=== PATIENT | female | born 1950 | race Caucasian/White ===

== ENCOUNTER 2024-10-07 17:23 | Observation (INO) | payer MEDICARE, OTHER, SELFPAY ==
[2024-10-07] VITALS (7 sets, daily range): BP systolic 135–179; BP diastolic 60–84; PULSE 62–97; RESP 16–20; TEMP 35.9–36.9; O2SAT 95–99; BMI 23.3
--- NOTE | 2024-10-07 20:11 | XR_ITS ---
Patient: MARYANN DIMAS Facility:?[facility] Patient ID:?[id number] Site Patient ID:?[id number]. Site :?[id number] Study:?XRay-Chest 2v-10/07/2024 10:21:14 PM Ordering Physician:Prasad Childs Final Report: INDICATION: Chest pain. TECHNIQUE: Chest 2 views. COMPARISON: None. FINDINGS: Cardiovascular and mediastinum: Cardiomediastinal silhouette is within normal limits. Lungs and pleural spaces: No consolidation. No pleural effusions or pneumothorax. Bones and soft tissues: Degenerative changes of the spine. IMPRESSION: No acute cardiopulmonary abnormality. Dictated by Musa Vogel MD @ 10/07/2024 10:25:09 PM Signed by:?Musa Vogel MD @10/07/2024 10:25:09 PM (Electronic Signature)
[2024-10-07 20:14] LABS: Basophils Absolute Auto 0.09 K/uL (0.00-0.30); Basophils Percent Auto 0.9 % (0.0-3.0); Eosinophils Absolute Auto 0.42 K/uL (0.00-0.50); Eosinophils Percent Auto 4.2 % (0.0-7.0); Hematocrit 41.9 % (33.0-51.0); Hemoglobin* 13.7 gm/dL (12.0-16.0); Immature Granulocytes Abs Auto 0.01 K/uL (0.00-0.30); Immature Granulocytes Pct Auto 0.1 %; Lymphocytes Absolute Auto 2.91 K/uL (0.90-2.90); Lymphocytes Percent Auto 28.8 % (20-44); Mean Corpuscular HGB Conc 33 gm/dL (32-36); Mean Corpuscular Hemoglobin 29 pg (26-34); Mean Corpuscular Volume 89 fL (80-100); Monocytes Percent Auto 7.9 % (0.0-11.0); Neutrophils Absolute Auto 5.86 K/uL (1.7-7.0); Neutrophils Percent Auto 58.1 % (42.0-72.0); Platelet Count* 323 K/uL (140-440); RDW Coefficient of Variation % 12.6 % (11.5-15.5); Red Blood Count 4.71 m/uL (4.00-5.20); White Blood Count* 10.09 K/uL (4.50-11.00)
--- NOTE | 2024-10-07 20:17 | ED.CHESTPAIN ---
HPI - Chest Pain General Date Seen: 10/07/24 Chief Complaint: Chest Pain Stated Complaint: Chest pain Time Seen by Provider: 10/07/24 19:59 Source: patient Mode of arrival: ambulatory Limitations: no limitations History of Present Illness HPI narrative: Patient is a 74-year-old female presenting to the emergency department for chest pain. She has been having intermittent chest pain for the past few weeks. She feels like it might become more frequent but can not say for certain. States Tums seem to make her symptoms better. Has had 3 separate episodes today. Called her triage line and was told to come to the emergency department. When she had the symptoms today she felt like she bilateral arm weakness but again those symptoms have all since resolved. She does states since she was in triage she started having some mild chest pain again. Does state it feels like a cramping sensation. Symptoms usually happen in the evening after she eats. No history of heart or lung disease. She does have a father who had triple bypass surgery. Her only medication is for arthritis. No history of blood clots. Has not had any hemoptysis. No history of smoking. No other concerns noted at this time. Related Data Home Medications ?Medication ?Instructions ?Recorded ?Confirmed No Known Home Medications 10/07/24 10/07/24 Allergies Allergy/AdvReac Type Severity Reaction Status Date / Time Penicillins Allergy Unknown Hives Verified 10/07/24 17:34 Review of Systems Status of ROS Reports: 10 or more systems reviewed and unremarkable except as noted in History and below PFSH PFSH Social History Smoking Status: Never smoker Do you use any of these nicotine containing products: None How often do you have a drink containing alcohol: 2-4 times a month How many standard drinks containing alcohol do you have on a typical day: 1 or 2 How often do you have six or more drinks on one occasion: Never AUDIT-C Alcohol total score: 2 Non-prescribed substance use: denies use service: No Exam Narrative Exam Narrative: Const: Well-nourished, Well-developed, in mild distress Eyes: PERRL, no conjunctival injection, and symmetrical lids HENT: Atraumatic external nose and ears. Moist mucous membranes. Neck: Symmetric, trachea midline, No thyromegaly. CVS: RRR, No murmurs or gallops. Peripheral pulses 2+ and equal in all extremities RESP: Unlabored respiratory effort. Clear to auscultation bilaterally. GI: Nontender/Nondistended, No rebound or guarding. MSK:Extremities w/o deformity, Normal Active ROM Skin: Warm, Dry. No rashes or lesions. Neuro: Normal Muscle tone, No focal neurological deficits. Psych: Awake, Alert, & Oriented x3. Appropriate mood and affect. Const Vital Signs, click to edit/add: Vital Signs - 24 hr 10/07/24 17:29 10/07/24 20:32 10/07/24 20:44 Temperature 96.7 F L 98.5 F Pulse Rate [Pulse Oximeter] 72 75 62 Respiratory Rate 16 18 18 Blood Pressure [Right Upper Arm] 155/84 H 179/79 H 165/81 H Pulse Oximetry 98 99 98 Oxygen Delivery Method Room Air Room Air Room Air 10/07/24 20:55 10/07/24 21:40 10/07/24 22:00 Temperature Pulse Rate [Pulse Oximeter] 97 66 64 Respiratory Rate 20 16 16 Blood Pressure [Right Upper Arm] 147/74 H 154/73 H 137/64 Pulse Oximetry 98 97 95 Oxygen Delivery Method Room Air Room Air Room Air Course Vital Signs Vital signs: Initial Vital Signs Temperature 96.7 F L 10/07/24 17:29 Temperature Source Temporal Artery Scan 10/07/24 17:29 Pulse Rate 72 10/07/24 17:29 Pulse Rhythm Regular 10/07/24 17:29 Respiratory Rate 16 10/07/24 17:29 Blood Pressure 155/84 H 10/07/24 17:29 Blood Pressure Mean 107 H 10/07/24 17:29 Blood Pressure Position Sitting 10/07/24 17:29 Pulse Oximetry 98 10/07/24 17:29 Oxygen Delivery Method Room Air 10/07/24 17:29 Vital Signs Temperature 96.7 F L 10/07/24 17:29 Pulse Rate 72 10/07/24 17:29 Respiratory Rate 16 10/07/24 17:29 Blood Pressure 155/84 H 10/07/24 17:29 Pulse Oximetry 98 10/07/24 17:29 Oxygen Delivery Method Room Air 10/07/24 17:29 Temperature 98.5 F 10/07/24 20:32 Pulse Rate 64 10/07/24 22:00 Respiratory Rate 16 10/07/24 22:00 Blood Pressure 137/64 10/07/24 22:00 Pulse Oximetry 95 10/07/24 22:00 Oxygen Delivery Method Room Air 10/07/24 22:00 Medications Administered Medications: Discontinued Medications Generic Name Dose Route Start Last Admin Trade Name Kyle PRN Reason Stop Dose Admin Aspirin 324 mg 10/07/24 20:55 10/07/24 21:02 Aspirin 81 Mg Tab.Chew PO 10/07/24 20:56 324 mg ONCE ONE Administration Lidocaine/Aluminum/Magnesium/Simeth 30 ml 10/07/24 20:11 10/07/24 20:32 Gi Cocktail (Visc Lido/Antacid) 30 Ml PO 10/07/24 20:12 30 ml ONCE ONE Administration MDM - Chest Pain MDM Narrative Medical decision making narrative: Patient is a 74-year-old female presenting for chest pain. The differential diagnosis of chest pain is broad and includes common etiologies such as musculoskeletal strain, GERD, pneumonia, etc. More serious etiologies considered include PE, coronary artery disease, pneumothorax, aortic dissection, aortic aneurysm. I will do a D-dimer look for signs of PE. EKG and troponin to look for signs of coronary artery disease. Chest x-ray order to look for signs of pneumothorax or pneumonia. She is otherwise appearing stable aortic dissection and aortic aneurysm seem unlikely. Will try some GI cocktail to see if her symptoms are from GERD. Based on the Tums helping I a.m. thinking this could be cared related. Will also do CBC, BMP, viral swabs, magnesium. Chest x-ray reviewed by myself and the radiologist shows no acute concerning abnormalities. Patient EKG shows no acute concerning abnormalities. Troponin is elevated at 0.09. We will repeat this. Her symptoms seem to have improved. Unsure if it is due to the GI cocktail are not CBC and BMP showed no concerning findings. Magnesium within normal limits. Viral swabs are negative. D-dimer is elevated 1.61 so will do a CTA. CTA shows no acute concerning abnormalities. She does have multiple scattered bilateral pulmonary nodules. These can be follow-up outpatient. Repeat troponin is 0.09. There has been no change in she is an otherwise healthy lady but it is odd that her troponin would be elevated. I checked epic in our previous records and have not seen any signs of previous troponins. Unsure what her baseline is. Considering this chest pain has been ongoing I do think we should admit her for further evaluation. She is agreeable to this plan. I spoke to the hospitalist who accepts her for admission Lab Data Labs: Lab Results 10/07/24 10/07/24 10/07/24 Range/Units 19:57 20:04 20:13 WBC 10.09 (4.50-11.00) K/uL RBC 4.71 (4.00-5.20) m/uL Hgb 13.7 (12.0-16.0) gm/dL Hct 41.9 (33.0-51.0) % MCV 89 (80-100) fL MCH 29 (26-34) pg MCHC 33 (32-36) gm/dL RDW Coeff of Martell 12.6 (11.5-15.5) % Plt Count 323 (140-440) K/uL Neut % (Auto) 58.1 (42.0-72.0) % Lymph % (Auto) 28.8 (20-44) % [place] % (Auto) 7.9 (0.0-11.0) % Eos % (Auto) 4.2 (0.0-7.0) % Baso % (Auto) 0.9 (0.0-3.0) % Neut # (Auto) 5.86 (1.7-7.0) K/uL Lymph # (Auto) 2.91 H (0.90-2.90) K/uL [place] # (Auto) 0.80 (0.00-0.90) K/UL Eos # (Auto) 0.42 (0.00-0.50) K/uL Baso # (Auto) 0.09 (0.00-0.30) K/uL Abs Immat Gran (auto) 0.01 (0.00-0.30) K/uL Imm/Tot Granulo (auto) 0.1 % D-Dimer Quant (PE/DVT) 1.61 H (0.00-0.50) ug/ml Sodium 138 (135-149) mmol/L Potassium 4.2 (3.6-5.1) mmol/L Chloride 103 (96-114) mmol/L Carbon Dioxide 28 (20-32) mmol/L Anion Gap 7 (7-15) mEq/L BUN 18 (7-30) mg/dL Creatinine 0.8 (0.5-1.5) mg/dL Estimated Creat Clear 42.62 Estimated GFR 77 ml/min Glucose 96 (60-115) mg/dL Calcium 10.4 (8.4-10.6) mg/dL Magnesium 2.3 Cancelled (1.5-2.6) mg/dL Troponin I 0.09 H* (0.01-0.04) ng/mL SARS-CoV-2 (PCR) (Negative) Influenza Type A (PCR) (Negative) Influenza Type B (PCR) (Negative) RSV (PCR) (Negative) Lab Acknowledgement POC Troponin I 0.07 H (0.01-0.04) ng/ml 10/07/24 10/07/24 10/07/24 Range/Units 20:17 20:37 22:02 WBC (4.50-11.00) K/uL RBC (4.00-5.20) m/uL Hgb (12.0-16.0) gm/dL Hct (33.0-51.0) % MCV (80-100) fL MCH (26-34) pg MCHC (32-36) gm/dL RDW Coeff of [place]ell (11.5-15.5) % Plt Count (140-440) K/uL Neut % (Auto) (42.0-72.0) % Lymph % (Auto) (20-44) % [place] % (Auto) (0.0-11.0) % Eos % (Auto) (0.0-7.0) % Baso % (Auto) (0.0-3.0) % Neut # (Auto) (1.7-7.0) K/uL Lymph # (Auto) (0.90-2.90) K/uL [place] # (Auto) (0.00-0.90) K/UL Eos # (Auto) (0.00-0.50) K/uL Baso # (Auto) (0.00-0.30) K/uL Abs Immat Gran (auto) (0.00-0.30) K/uL Imm/Tot Granulo (auto) % D-Dimer Quant (PE/DVT) (0.00-0.50) ug/ml Sodium (135-149) mmol/L Potassium (3.6-5.1) mmol/L Chloride (96-114) mmol/L Carbon Dioxide (20-32) mmol/L Anion Gap (7-15) mEq/L BUN (7-30) mg/dL Creatinine (0.5-1.5) mg/dL Estimated Creat Clear Estimated GFR ml/min Glucose (60-115) mg/dL Calcium (8.4-10.6) mg/dL Magnesium (1.5-2.6) mg/dL Troponin I 0.09 H* (0.01-0.04) ng/mL SARS-CoV-2 (PCR) Negative SARS-CoV-2 (Negative) Influenza Type A (PCR) Negative PCR FLU A (Negative) Influenza Type B (PCR) Negative PCR FLU B (Negative) RSV (PCR) Negative PCR RSV (Negative) Lab Acknowledgement Test Added POC Troponin I (0.01-0.04) ng/ml Imaging Data CTA chest: Radiologist's impression: IMPRESSION: 1. No evidence of pulmonary embolism or acute pulmonary process. 2. Scattered bilateral pulmonary nodules measuring up to 6 mm. Please see below for follow-up guidelines. Chest x-ray: Attestation: I have reviewed the pertinent imaging results. Radiologist's impression: No acute cardiopulmonary abnormality. Dictated by Musa Vogel MD @ 10/07/2024 10:25:09 PM Discharge Plan Discharge Clinical Impression: Elevated troponin Chest pain Qualifiers: Chest pain type: unspecified Qualified Code(s): R07.9 - Chest pain, unspecified Patient Disposition: Admitted As Observation Condition: Stable
[2024-10-07 20:19] LABS: Slide Review Reflex No
[2024-10-07 20:26] LABS: Chloride* 103 mmol/L (96-114); Sodium* 138 mmol/L (135-149)
[2024-10-07 20:26] LABS: Troponin, Point-of-Care* 0.07 ng/ml (0.01-0.04)
[2024-10-07 20:27] LABS: Potassium* 4.2 mmol/L (3.6-5.1)
[2024-10-07 20:29] LABS: Anion Gap 7 mEq/L (7-15); Blood Urea Nitrogen* 18 mg/dL (7-30); Carbon Dioxide* 28 mmol/L (20-32); Creatinine* 0.8 mg/dL (0.5-1.5); Est. Creatinine Clearance* 42.62; Estimated Glomerular Filt Rate 77 ml/min
[2024-10-07 20:30] LABS: Calcium* 10.4 mg/dL (8.4-10.6); D Dimer Quantitative* 1.61 ug/ml (0.00-0.50); Glucose* 96 mg/dL (60-115); Magnesium* 2.3 mg/dL (1.5-2.6)
[2024-10-07] MEDS: GI COCKTAIL (VISC LIDO/ANTACID) 30 ML PO (20:32)
[2024-10-07 20:43] LABS: Troponin I* 0.09 ng/mL (0.01-0.04)
--- NOTE | 2024-10-07 20:48 | CT_ITS ---
Patient: MARYANN DIMAS Facility:?[facility] Patient ID:?[id number] Site Patient ID:?[id number] Site :?[id number] Study:?CT-Chest PE PROTOCOL-10/07/2024 9:43:10 PM Ordering Physician:SHRUTHI Final Report: INDICATION: Chest pain. TECHNIQUE: CTA chest PE was acquired with 95 cc Isovue 370 IV contrast. Multiplanar and MIP reconstructions were performed. COMPARISON: None. FINDINGS: Heart and vasculature: Contrast opacification of the pulmonary arterial tree is adequate. No sign of pulmonary embolism. Heart size is normal. Thoracic aorta and pulmonary artery are normal in caliber. Lungs and pleura: Mild dependent and bibasilar atelectasis. Otherwise no acute infiltrates. Scattered bilateral pulmonary nodules, with territory service representative examples including 5 mm right lower lobe nodule (series 5, image 114), 6 mm right lower lobe nodule (series 5, image 121), 5 mm left perifissural nodule (series 5, image 88), and 5 mm posterior left lower lobe nodule (series 5, image 115). No pleural effusions, pleural thickening, or pneumothorax. Lymph nodes/mediastinum: No mediastinal, hilar, or axillary adenopathy. Bilateral subcentimeter thyroid nodules. Chest wall: No masses. Upper abdomen: No acute findings. Bones: Degenerative changes. IMPRESSION: 1. No evidence of pulmonary embolism or acute pulmonary process. 2. Scattered bilateral pulmonary nodules measuring up to 6 mm. Please see below for follow-up guidelines. SOCIETY GUIDELINES - SOLID NODULES: SINGLE LOW RISK - nodule less than 6 mm: No routine follow-up. - nodule 6-8 mm: CT at 6-12 months, then consider CT at 18-24 months. - nodule greater than 8 mm: Consider CT at 3 months, PET/CT or tissue sampling. SINGLE HIGH RISK - nodule less than 6 mm: Optional CT at 12 months. - nodule 6-8 mm: CT at 6-12 months, then CT at 18-24 months. - nodule greater than 8 mm: Consider CT at 3 months, PET/CT or tissue sampling. MULTIPLE LOW RISK - nodule less than 6 mm: No routine follow-up. - nodule 6-8 mm: CT at 3-6 months, then consider CT at 18-24 months. - nodule greater than 8 mm: CT at 3-6 months, then consider CT at 18-24 months. MULTIPLE HIGH RISK - nodule less than 6 mm: Optional CT at 12 months. - nodule 6-8 mm: CT at 3-6 months, then at 18-24 months. - nodule greater than 8 mm: CT at 3-6 months, then at 18-24 months. Please note that all CT scans at this facility use dose modulation, iterative reconstruction, and/or weight-based dosing when appropriate to reduce radiation dose to as low as reasonably achievable. Dictated by Musa Vogel MD @ 10/07/2024 10:06:04 PM Signed by:?Musa Vogel MD @10/07/2024 10:06:04 PM (Electronic Signature)
[2024-10-07] MEDS: ASPIRIN 81 MG TAB.CHEW 324 MG PO (21:02)
--- OUTSIDE RECORDS SUMMARY | 2024-10-07 21:05 | XMS_ITS | Clinical Summary ---
Author Organization [facility] Address [address] [place] [id number] Care Team Providers Care Propellant Charge Zone Assembler Name Role Phone Luis Greene MD Primary Care Provider [phone] Allergies Active Allergy Reactions Criticality Noted Date Comments Penicillins Hives,Rash High 06/25/2011 Medications triamcinolone (ARISTOCORT; KENALOG) 0.1 % creamIndication s:Dermatitis Apply topically to affected area(s) two times daily. 80 g 2 4 Active cholecalciferol (Vitamin D) 1,000 unit capsule Take 1 Capsule (1,000 units) by mouth once daily. 4 Active Active Problems Problem Noted Date Diagnosed Date Primary osteoarthritis of both hips 08/13/2023 Hyperlipidemia 12/02/2021 Encounters Date Type Department Care Team Description 10/07/[address] [facility] [address] [address] Luis Greene MD Chest Pain 09/15/2024 8:00 AM CDT Office Visit [facility] [address] [place] [place] [address] Luis Greene MD Medicare ANNUAL (subsequent) Visit 09/14/2024 Travel 09/11/2024 9:10 AM CDT Ancillary Procedure [facility] [address] [place] [id number] 09/11/2024 Travel 09/10/2024 10:10 AM CDT Office Visit [facility] [address] [place] [address] Clara Slade MD Derm Problem 09/09/2024 Travel 09/07/2024 Travel 08/27/2024 Orders Only [facility] Scanner 1 scan: (1-Ord) INCOMING RECORDS-[facility], 08/27/2024 from Last 3 Months Immunizations Immunization Administration Dates Next Due DT (Age < 7 years) 07/20/1991 Influenza, High-dose Inactivated 12/26/2023,12/14,01/08/2018 Influenza, High-dose Quadriv alent Inactivated 01/11/2023,01/01/2022,01/30/2021,12/13 Pneumococcal Poly,23-Valent (Pneumovax) 06/04/2016 Pneumococcal conj 13-Valent (Prevnar 13) 05/04/2015 RSV, Bivalent Vaccine Recons tituted (Abrysvo 120MCG/0.5mL) 01/11/2023 TD, UNSPECIFIED 10/23/2001 Td (Age >=7 Years) 12/02/2021 Tdap, Unspecified 11/23/2005 Zoster (Shingrix-RZV, recombinant) 01/08/2018, Zoster (Zostavax-ZVL, live) 05/10/2010 Family History Medical History Relation Name Comments Brain Aneurysm Brother 1 Stroke Father Relation Name Status Comments Brother 1 Brother 2 Alive Brother 3 Alive Father Mother Social History Tobacco Use Types Packs/Day Years Used Date Smoking Tobacco: Never Passive Smoke Exposure: Never Smokeless Tobacco: Never Tobacco Cessation:Counseling Given: Not Answered Alcohol Use Standard Drinks/Week Comments Yes 0 (1 standard drink = 0.6 oz pur e alcohol) PHQ-2 Answer Date Recorded PHQ-2 TOTAL SCORE 0 09/15/2024 Social Connections Answer Date Recorded Do you often feel lonely or isolated from those around you? 0 09/14/2024 Financial Resource Strain Answer Date R ecorded Difficulty of Paying Living Expenses 3 09/14/2024 Difficulty of Paying Living Expenses Not on file 09/14/2024 Food Insecurity Answer Date Recorded Do you worry your food will run out before you are able to buy more? 1 09/14/2024 Transportation Needs Answer Date Record ed Does lack of transportation keep you from medica l appointments? 1 09/14/2024 Does lack of transportation keep you from work, meetings or getting things that you need? 1 09/14/2024 Housing Stability Answer Date Recorded What is your housing situation today? 1 09/14/2024 Utilities Answer Date Recorded Do you have trouble paying f or utilities (for example, heat, electricity, water, phone)? 1 09/14/2024 Comments No Sex and Gender Information Value Date Recorded Sex Assigned at Not on file Legal Sex Female 11:27 AM CDT Gender Identity Not on file Sexual Orientation Not on file Travel History Travel Start Travel End [place] 09/05/2024 09/06/2024 Obstetrics History Para Term AB IAB SAB Ectopic Multiple Livin g Live Births 3 3 Date Outcome GA Total Labor Labor/2nd/3rd Weight Sex Type Anes PTL Yudy A1 A5 Name Clin Para Para Para Last Filed Vital Signs Vital Sign Reading Time Taken Comments Blood Pressure 100/70 09/15/2024 8:09 AM CDT Pulse 72 09/15/2024 8:09 AM CDT Temperature 36.1 C (96.9 F) 12/02/2021 11:43 AM CDT Respiratory Rate - - Oxygen Saturation 97% 12/02/2021 11:43 AM CDT Inhaled Oxygen Concentration - - Weight 62.6 kg (138 lb) 09/15/2024 8:09 AM CDT Height 164 cm (5' 4.57) 09/15/2024 8:09 AM CDT Body Mass Index 23.27 09/15/2024 8:09 AM CDT Plan of Treatment Health Maintenance Due Date Last Done Comments Colonoscopy through age 75 05/19/202505/19 (Verified in Care Everywhere or Patient Record) Mammogram for age 45-75 09/11/2025 09/12/19 25, 08/14/2023, 05/25/2022, Additional history exists BMI (ht and wt on same day) for age 18+ 09/15/2025 09/15/2024, 08/13/2023 Depression screening for age 12+ 09/15/2025 09/15/2024, 09/10/2024, 08/13/2023, Additional history exists Medicare Wellness for age 65+ 09/16/2025 09/15/2024, 08/13/2023 Lipids for age 45-75 09/15/2029 09/15/2024 Tetanus booster 12/03/2031 12/02/2021, 11/13, 10/23/2001 Tdap Completed 11/23/2005 Pneumococcal series for age 50+ Completed 06/04/2016, 05/04/2015 Zoster (shingles) series for age 50+ Completed 01/08/2018, 08/09/2017, 05/10/2010 DEXA/DXA scan for age 65+ Addressed 2021 (Verified in Care Everywhere or Patient Record) Overridden with the intention of not completing the topic RSV vaccine for adults or Completed 01/11/2023 Influenza Vaccine Completed 12/26/2023, , 01/08/2018 COVID-19 vaccine series Completed 07/23/19, 12/26/2023, 01/11/2023, Additional history exists Hepatitis C screening for age 18-79 Completed 09/15/2024 Hepatitis B series for 19+ Aged Out N o longer eligible based on patient's age to complete this topic Procedures Procedure Name Priority Date/Time Associated Diagnosis Comments LIPID PANEL W REFLEX MEASURED LDL Routine 09/15/2024 8:55 AM CDT Screening for cardiovascular condition BASIC METABOLIC PANEL Routine 09/15/2024 8:55 AM CDT Screening for diabetes mellitus (DM) ANTI HCV Routine 09/15/2024 8:55 AM CDT Need for hepatitis C screening test CBC WITH AUTO DIFFERENTIAL Routine 09/15/2024 8:55 AM CDT Screening for other disorders of blood and blood-forming organs XR MAMMO LONNIE BILAT SCREEN Routine 09/11/2024 9:16 AM CDT Visit for screening mammogram SCAN CORRESP-IMAGING 08/27/2024 12:00 AM CDT from Last 3 Months Results * LIPID PANEL W REFLEX MEASURED LDL [[id number]] (09/15/2024 8:55 AM CDT) CHOLESTEROL, TOTAL 182 <200 mg/dL [facility] HDL CHOLESTEROL 72 > OR = 50 mg/dL [facility] TRIGLYCERIDES 41 <150 mg/dL [facility] LDL-CHOLESTEROL 98 mg/dL (calc) [facility] Comment: Reference range: <100 Desirable range <100 mg/dL for primary prevention; <70 mg/dL for patients with CHD or diabetic patients with > or = 2 CHD risk factors. LDL-C is now calculated using the Jakub calculation, which is a validated novel method providing better accuracy than the Friedewald equation in the estimation of LDL-C. Phi BARON et al. EBER. 2013;310(19): 1885-0683 (http://education.DotBlu/faq/UPV181) CHOL/HDLC RATIO 2.5 <5.0 (calc) [facility] NON HDL CHOLESTEROL 110 <130 mg/dL (calc) [facility] Comment: For patients with diabetes plus 1 major ASCVD risk factor, treating to a non-HDL-C goal of <100 mg/dL (LDL-C of <70 mg/dL) is considered a therapeutic option. Blood BLOOD SPECIMEN / Unknown 09/15/2024 8:55 AM CDT 09/15/2024 8:55 AM CDT us Luis Greene MD CHEMISTRY Final Result [facility] [address] [place] [address], [place] [phone] [facility] [address] [place] [address] * ANTI HCV (09/15/2024 8:55 AM CDT) HEPATITIS C ANTIBODY NON-REACTI VE NON-REACT ABDIAS [facility] Comment: HCV antibody was non-reactive. There is no laboratory evidence of HCV infection. In most cases, no further action is required. However, if recent HCV exposure is suspected, a test for HCV RNA (test code 35767) is suggested. For additional information please refer to http://education.[employer] Innovation Factory/faq/ZED83y6 (This link is being provided for informational/ educational purposes only.) Blood BLOOD SPECIMEN / Unknown 09/15/2024 8:55 AM CDT 09/15/2024 8:55 AM CDT us Luis Greene MD SEND OUTS Final Result [facility] [address] [place] [address], [facility] [address] [place] [address] * (ABNORMAL) CBC AND DIFFERENTIAL (09/15/2024 8:55 AM CDT) Pathologist [facility] WHITE BLOOD CELL COUNT 8.7 3.8 - 10.8 Thousand/u L [facility] RED BLOOD CELL COUNT 4.61 3.80 - 5.10 Million/uL [facility] HEMOGLOBIN 13.2 11.7 - 15.5 g/dL [facility] HEMATOCRIT 42.7 35.0 - 45.0 % [facility] MCV 92.6 80.0 - 100.0 fL [facility] MCH 28.6 27.0 - 33.0 pg [facility] MCHC 30.9(L) 32.0 - 36.0 g/dL [facility] Comment: For adults, a slight decrease in the calculated MCHC value (in the range of 30 to 32 g/dL) is most likely not clinically significant; however, it should be interpreted with caution in correlation with other red cell parameters and the patient's clinical condition. RDW 13.0 11.0 - 15.0 % [facility] PLATELET COUNT 335 140 - 400 Thousand/u L [facility] MPV 10.1 7.5 - 12.5 fL [facility] ABSOLUTE NEUTROPHILS 5,168 1,500 - 7,800 cells/uL [facility] ABSOLUTE LYMPHOCYTES 2,071 850 - 3,900 cells/uL [facility] ABSOLUTE MONOCYTES 818 200 - 950 cells/uL [facility] ABSOLUTE EOSINOPHILS 522(H) 15 - 500 cells/uL [facility] ABSOLUTE BASOPHILS 122 0 - 200 cells/uL [facility] NEUTROPHILS 59.4 % [facility] LYMPHOCYTES 23.8 % [facility] MONOCYTES 9.4 % [facility] EOSINOPHILS 6.0 % [facility] BASOPHILS 1.4 % [facility] Blood BLOOD SPECIMEN / Unknown 09/15/2024 8:55 AM CDT 09/15/2024 8:55 AM CDT us Luis Greene MD HEMATOLOGY Final Result [facility] [address] [place] [address], [facility] [address] [place] [phone] * BASIC METABOLIC PANEL (09/15/2024 8:55 AM CDT) [facility] GLUCOSE 88 65 - 99 mg/dL [facility] Comment: Fasting reference interval UREA NITROGEN (BUN) 15 7 - 25 mg/dL [facility] CREATININE 0.86 0.60 - 1.00 mg/dL [facility] EGFR 71 > OR = 60 mL/min/1. 73m2 [facility] BUN/CREATININE RATIO SEE NOTE: 6 - 22 (calc) [facility] Comment: Not Reported: BUN and Creatinine are within reference range. SODIUM 141 135 - 146 mmol/L [facility] POTASSIUM 4.7 3.5 - 5.3 mmol/L [facility] CHLORIDE 105 98 - 110 mmol/L [facility] CARBON DIOXIDE 27 20 - 32 mmol/L [facility] ELECTROLYTE BALANCE 9 7 - 17 mmol/L (calc) [facility] CALCIUM 9.6 8.6 - 10.4 mg/dL [facility] Blood BLOOD SPECIMEN / Unknown 09/15/2024 8:55 AM CDT 09/15/2024 8:55 AM CDT us Luis Greene MD CHEMISTRY Final Result [facility] [address] [place] [address], [facility] [address] [place] [address] * XR MAMMO LONNIE BILAT SCREEN (09/11/2024 9:16 AM CDT) Anatomical Region Laterality Modality BREASTS, Breast Left, Breast Right Bilateral Mammography Impressions 09/14/2024 5:20 PM CDT There is no radiographic evidence for malignancy. Recommend annual mammograms. MAMMOGRAM ASSESSMENT: ACR 1 Negative PATIENTS: You will also receive a letter with your examination results in an easy to read format. If you have questions about your results, please contact your referring provider. Narrative 09/14/2024 5:20 PM CDT For Patients: As a result of the 21st Century Cures Act, medical imaging exams and procedure reports are released immediately into your electronic medical record. You may view this report before your referring provider. If you have questions, please contact your health care provider. XR MAMMO LONNIE BILAT SCREEN [[id number]] CLINICAL HISTORY: This is an asymptomatic 74 y.o. patient. INDICATION FOR EXAM: Mammogram Screening. TECHNIQUE: CC and MLO views were obtained. This study was evaluated with the assistance of Computer-Aided Detection. Breast Tomosynthesis was used in interpretation. COMPARISON FILM: Yes 08/14/23 [facility] 06/03/20 Outside Facility FINDINGS: There are scattered areas of fibroglandular density. There are no dominant masses, suspicious micro calcifications or areas of architectural distortion. us Luis Greene MD MAMMO Final Result * SCAN CORRESP-IMAGING (08/27/2024 12:00 AM CDT) Anatomical Region Laterality Modality Other us Scanner OTHER Final Result from Last 3 Months Insurance MEDICARE PB ONLY [facility] Advance Directives Documents on File Type Date Recorded Patient Distance Education Director Expl anation Healthcare Directive 06/14/2015 LIVING WILL / ORGAN DONOR STATEMENT / DURABLE POWER OF LUNCHROOM SUPERVISOR FOR [facility], 06/14/2015 Care Teams Propellant Charge Zone Assembler Relationship Specialty [place] [address] [place], [place] [id number] PCP - General Family Practice 08/15/23
[2024-10-07 21:16] LABS: PCR FLU A Negative PCR FLU A (Negative); PCR FLU B Negative PCR FLU B (Negative); PCR RSV Negative PCR RSV (Negative); SARS PCR* Negative SARS-CoV-2 (Negative)
[2024-10-07 22:42] LABS: Troponin I* 0.09 ng/mL (0.01-0.04)
--- NOTE | 2024-10-07 22:56 | P.IMHP_ITS ---
Assessment and Plan Assessment and plan (1) Chest pain: Problem comment: - epigastric, present for 10-14 days prior to admission - ddx: GERD, biliary colic, CAD - follow troponin to peak, telemetry, TTE 10/08 Status: Acute (2) Elevated troponin: Problem comment: - 0.09 in ER, unchanged upon repeat, follow to peak Status: Acute (3) Lung nodules: Problem comment: - incidentally noted on 10/07 CT, patient aware - low risk, no f/u per Society Guidelines Status: Acute Plan - per above Hospitalist- H&P: HPI History of Present Illness Date Seen: 10/07/24 Chief complaint: Chest pain Narrative: Judy Linares is a 74 year old female who presented to the ER with ep igastric pain. Symptoms noted intermittently over the past few weeks, typically noted after eating, in the evening. Has used TUMS for symptoms with relief. Has been active without incident. Over the weekend, had an episode at her son's wedding (10/03) with associated vomiting x1. Today, had two episodes of discomfort and one included bilateral arm pain, called her PCP's nursing line and was advised to come in. No history of HTN, Hyperlipidemia, or CAD. No diarrhea or constipation. ER Course and Findings: - reassuring CBC and CMP, negative triple swab - troponin 0.09m same on repeat - no acute abnormalities on EKG - D-dimer 1.61 - CT Angiogram negative for PE, scattered B nodules noted, all <6mm Histories updated below. Recently seen by PCP (Luis Greene at [facility]) and had annual labs done: fasting glucose 88, total cholesterol 182, LDL 98. Review of Systems Status of ROS: Reports: 10 or more systems reviewed and unremarkable except as noted in History and below Narrative: - has had some R hip pain and radiculopathy from known L5/S1 disc, seeing PT and scheduled for injection next week Medical Decision Making Medical Decision Making Code Status: For this admission Full Code (Typically DNR/DNI) Has patient completed a Health Care Directive: Yes During This Stay, Who Would You Like To Make Decisions For You In The Event You Are Unable To Make Them For Yourself?: [facility] Medical History (Updated 10/07/24 @ 23:54 by Marifer Crowe MD) Osteoarthritis ?M19.90 - Unspecified osteoarthritis, unspecified site (ICD-10) Osteopenia ?M85.80 - Other specified disorders of bone density and structure, unspecified site (ICD-10) Surgical History (Updated 10/07/24 @ 23:10 by Marifer Crowe MD) Hx of tonsillectomy ?Z90.89 - Acquired absence of other organs (ICD-10) H/O tubal ligation ?Z98.51 - Tubal ligation status (ICD-10) History of colonoscopy ?Z98.890 - Other specified postprocedural states (ICD-10) Family History (Updated 10/07/24 @ 23:17 by Marifer Crowe MD) Father Cardiovascular disease Social History (Updated 10/07/24 @ 23:52 by Marifer Crowe MD) Narrative: 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 Diego would be MDM if needed, + adult children. Never smoker, rare ETOH. Smoking Status: Never smoker Do you use any of these nicotine containing products: None How often do you have a drink containing alcohol: 2-4 times a month How many standard drinks containing alcohol do you have on a typical day: 1 or 2 How often do you have six or more drinks on one occasion: Never AUDIT-C Alcohol total score: 2 Non-prescribed substance use: denies use service: No Meds Home Medications and Allergies Home Medications ?Medication ?Instructions ?Recorded ?Confirmed ?Type No Known Home Medications 10/07/2409/14 History Home Medication Comments: - Daily Vitamin D Allergies Allergy/AdvReac Type Severity Reaction Status Date / Time Penicillins Allergy Unknown Hives Verified 10/07/24 17:34 Exam Narrative: Exam Narrative: GEN: Alert and oriented, nontoxic HEENT: Normal external ears, EOMIs bilaterally, no scleral icterus CV: RRR, No concerning murmurs, no carotid bruits R: LCTA bilaterally without concerning wheezing Ab: Soft, no ttp, no distention, negative Dumas's sign Ext: wwp, no concerning edema Skin: No concerning skin lesions or rashes on exposed skin Neuro: No focal deficits Psych: Appropriate Const: Vital Signs, click to edit/add: Vital Signs - 24 hr 10/07/24 17:29 10/07/24 20:32 10/07/24 20:44 Temperature 96.7 F L 98.5 F Pulse Rate [Pulse Oximeter] 72 75 62 Respiratory Rate 16 18 18 Blood Pressure [Ri t Upper Arm] 155/84 H 179/79 H 165/81 H Pulse Oximetry 98 99 98 Oxygen Delivery Me thod Room Air Room Air Room Air 10/07/24 20:55 10/07/24 21:40 10/07/24 22:00 Temperature Pulse Rate [Pulse Oximeter] 97 66 64 Respiratory Rate 20 16 16 Blood Pressure [Ri ght Upper Arm] 147/74 H 154/73 H 137/64 Pulse Oximetry 98 97 95 Oxygen Delivery Me thod Room Air Room Air Room Air Hospitalist - H&P: Result Labs Labs: Short CBC 10/07/24 Range/Units 20:04 WBC 10.09 (4.50-11.00) K/uL Hgb 13.7 (12.0-16.0) gm/dL Hct 41.9 (33.0-51.0) % Plt Count 323 (140-440) K/uL BMP 10/07/24 20:04 Sodium 138 Potassium 4.2 Chloride 103 Carbon Dioxide 28 BUN 18 Creatinine 0.8 Glucose 96 Calcium 10.4 Cardiac Enzymes 10/07/24 10/07/24 Range/Units 20:04 22:02 Troponin I 0.09 H* 0.09 H* (0.01-0.04) ng/mL
[2024-10-07 23:26] LABS: Albumin* 4.2 g/dL (3.3-5.0)
[2024-10-07 23:29] LABS: Alanine Aminotransferase* 18 U/L (4-35); Alkaline Phosphatase* 79 U/L (40-150); Aspartate Amino Transferase* 44 U/L (12-35); Bilirubin Direct* 0.2 mg/dL (0.0-0.5); Bilirubin Total* 0.7 mg/dL (0.1-1.5); Total Protein* 7.2 g/dL (6.0-8.3)
[2024-10-08 00:30] VITALS: BP 182/82; PULSE 67; RESP 16; TEMP 36.4; O2SAT 97; BMI 23.1; BMI 23.2
[2024-10-08 00:32] VITALS: PULSE 86
[2024-10-08 03:05] VITALS: BP 125/57; PULSE 66; RESP 14; TEMP 36.5; O2SAT 99
[2024-10-08 04:26] LABS: Basophils Percent Auto 1.2 % (0.0-3.0); Eosinophils Absolute Auto 0.48 K/uL (0.00-0.50); Eosinophils Percent Auto 5.7 % (0.0-7.0); Hematocrit 40.7 % (33.0-51.0); Hemoglobin* 13.4 gm/dL (12.0-16.0); Immature Granulocytes Abs Auto 0.01 K/uL (0.00-0.30); Immature Granulocytes Pct Auto 0.1 %; Lymphocytes Absolute Auto 2.93 K/uL (0.90-2.90); Lymphocytes Percent Auto 35.1 % (20-44); Mean Corpuscular HGB Conc 33 gm/dL (32-36); Mean Corpuscular Hemoglobin 29 pg (26-34); Mean Corpuscular Volume 89 fL (80-100); Monocytes Percent Auto 9.3 % (0.0-11.0); Neutrophils Absolute Auto 4.05 K/uL (1.7-7.0); Neutrophils Percent Auto 48.6 % (42.0-72.0); Platelet Count* 285 K/uL (140-440); RDW Coefficient of Variation % 12.6 % (11.5-15.5); Red Blood Count 4.58 m/uL (4.00-5.20); White Blood Count* 8.35 K/uL (4.50-11.00)
[2024-10-08 04:28] LABS: Slide Review Reflex No
[2024-10-08 04:39] LABS: Albumin* 4.1 g/dL (3.3-5.0); Chloride* 103 mmol/L (96-114); Potassium* 3.9 mmol/L (3.6-5.1); Sodium* 137 mmol/L (135-149)
[2024-10-08 04:42] LABS: Alanine Aminotransferase* 17 U/L (4-35); Alkaline Phosphatase* 63 U/L (40-150); Anion Gap 5 mEq/L (7-15); Aspartate Amino Transferase* 31 U/L (12-35); Bilirubin Total* 0.8 mg/dL (0.1-1.5); Blood Urea Nitrogen* 15 mg/dL (7-30); Calcium* 9.7 mg/dL (8.4-10.6); Carbon Dioxide* 29 mmol/L (20-32); Creatinine* 0.8 mg/dL (0.5-1.5); Est. Creatinine Clearance* 42.62; Estimated Glomerular Filt Rate 77 ml/min; Glucose* 88 mg/dL (60-115); Lipase* 100 U/L (23-300); Total Protein* 6.8 g/dL (6.0-8.3)
[2024-10-08 04:55] LABS: Troponin I* 0.11 ng/mL (0.01-0.04)
[2024-10-08] MEDS: OMEPRAZOLE 20 MG CAPSULE DR 40 MG PO (06:30)
--- NOTE | 2024-10-08 07:22 | PC.NURSE ---
This patient arrived just before midnight to be admitted under observation. Notably hypertensive at this time with 2/10 chest pain described as a pressure. Later that morning at 0300 was found to be near a normal blood pressure and without chest pain. My full assessment found nothing out of the ordinary besides skin which appears to be thin and fragile in line with the patient?s age. Telemetry is showing ?a normal sinus rhythm without interruptions. Blood draw showed an increase in troponin from 0.9 to 0.11 and so the on-call service was alerted. No changes from MD. The patient appeared to be medically stable and in good health at time of transfer of care.?
--- NOTE | 2024-10-08 08:17 | P.IMPN_ITS ---
Assessment and Plan Assessment and plan (1) Chest pain: Problem comment: - chest and epigastric, present for 10-14 days prior to admission - ddx: GERD, biliary colic, CAD - follow troponin to peak, telemetry, TTE 10/08 - consider cardiac stress test Status: Acute (2) Elevated troponin: Problem comment: - 0.09 in ER, unchanged upon repeat, follow to peak - flat elevated troponin I possibly related to nonischemic etiology. Seemingly normal kidney function. Check TSH. Status: Acute (3) Lung nodules: Problem comment: - incidentally noted on 10/07 CT, patient aware - low risk, no f/u per Society Guidelines Status: Acute Plan 1. Reviewed impression, plan, recommendations with patient and 2. Answered their questions 3. They are agreeable with above stated plans and recommendations Total Time Spent Total Time Spent: 45 minutes Subjective Date Seen: 10/08/24 Interval history: Admission history of present illness: 74 year old female who presented to the ER with epigastric pain. Symptoms noted intermittently over the past few weeks, typically noted after eating, in the evening. Has used TUMS for symptoms with relief. Has been active without incident. Over the weekend, had an episode at her son's wedding (10/03) with associated vomiting x1. Today, had two episodes of discomfort and one included bilateral arm pain, called her PCP's nursing line and was advised to come in. No history of HTN, Hyperlipidemia, or CAD. No diarrhea or constipation. ER Course and Findings: - reassuring CBC and CMP, negative triple swab - troponin 0.09m same on repeat - no acute abnormalities on EKG - D-dimer 1.61 - CT Angiogram negative for PE, scattered B nodules noted, all <6mm 10/08/2024, hospital day 2: One asymptomatic since admission to hospital. Slept well last night. Feeling well now. He denies chest heaviness, pressure, tightness, or pain. Denies dyspnea at rest, paroxysmal nocturnal dyspnea, orthopnea. Denies dyspnea with exertion. No cough. Denies heartburn, nausea, vomiting. No syncope or near-syncope. Denies orthostasis. Exam Narrative: Exam Narrative: I examine her in her hospital room. Appears comfortable no acute distress. Vision and hearing are adequate. Alert and oriented x4. Articulate and cooperative. Friendly. Cranial nerves 3-12 grossly normal. Independent in transfer, station, gait. No focal motor neurologic deficits. Lungs are clear to auscultation without wheezing, rhonchi, rales. Heart tones with regular rhythm, normal S1-S2, without murmur, gallop, rub. PMI not laterally displaced. Abdomen with active bowel sounds, soft, nontender. No organomegaly or masses. Extremities without edema. Skin is warm, dry, intact. Const: Vital Signs, click to edit/add: Vital Signs - 24 hr 10/07/24 17:29 10/07/24 20:32 10/07/24 20:44 Temperature 96.7 F L 98.5 F Pulse Rate Pulse Rate [Pulse Oximeter] 72 75 62 Pulse Rate [Right Pulse Oximeter] Respiratory Rate 16 18 18 Blood Pressure [Le ft Arm] Blood Pressure [Ri ght Upper Arm] 155/84 H 179/79 H 165/81 H Pulse Oximetry 98 99 98 Oxygen Delivery Me thod Room Air Room Air Room Air 10/07/24 20:55 10/07/24 21:40 10/07/24 22:00 Temperature Pulse Rate Pulse Rate [Pulse Oximeter] 97 66 64 Pulse Rate [Right Pulse Oximeter] Respiratory Rate 20 16 16 Blood Pressure [Le ft Arm] Blood Pressure [Ri ght Upper Arm] 147/74 H 154/73 H 137/64 Pulse Oximetry 98 97 95 Oxygen Delivery Me thod Room Air Room Air Room Air 10/07/24 22:00 10/07/24 23:44 10/08/24 00:30 Temperature 98.5 F 97.6 F Pulse Rate Pulse Rate [Pulse Oximeter] 68 Pulse Rate [Right Pulse Oximeter] 67 Respiratory Rate 16 16 Blood Pressure [Le ft Arm] 182/82 H Blood Pressure [Ri ght Upper Arm] 135/60 Pulse Oximetry 95 95 97 Oxygen Delivery Me thod Room Air Room Air 10/08/24 00:30 10/08/24 00:32 10/08/24 03:05 Temperature 97.7 F Pulse Rate 86 Pulse Rate [Pulse Oximeter] Pulse Rate [Right Pulse Oximeter] 66 Respiratory Rate 16 14 Blood Pressure [Le ft Arm] 125/57 L Blood Pressure [Ri ght Upper Arm] Pulse Oximetry 97 99 Oxygen Delivery Me thod Room Air Room Air Labs Labs: Laboratory Results - last 24 hr 06/10/07/24 10/07/24 19:57 20:04 20:13 WBC 10.09 RBC 4.71 Hgb 13.7 Hct 41.9 MCV 89 MCH 29 MCHC 33 RDW Coeff of Martell 12.6 Plt Count 323 Neut % (Auto) 58.1 Lymph % (Auto) 28.8 [place] % (Auto) 7.9 Eos % (Auto) 4.2 Baso % (Auto) 0.9 Neut # (Auto) 5.86 Lymph # (Auto) 2.91 H [place] # (Auto) 0.80 Eos # (Auto) 0.42 Baso # (Auto) 0.09 Abs Immat Gran (auto) 0.01 Imm/Tot Granulo (auto) 0.1 D-Dimer Quant (PE/DVT) 1.61 H Sodium 138 Potassium 4.2 Chloride 103 Carbon Dioxide 28 Anion Gap 7 BUN 18 Creatinine 0.8 Estimated Creat Clear 42.62 Estimated GFR 77 Glucose 96 Calcium 10.4 Magnesium 2.3 Cancelled Total Bilirubin Direct Bilirubin AST ALT Alkaline Phosphatase Troponin I 0.09 H* Total Protein Albumin Lipase SARS-CoV-2 (PCR) Influenza Type A (PCR) Influenza Type B (PCR) RSV (PCR) Lab Acknowledgement POC Troponin I 0.07 H 10/07/24 10/07/24 10/07/24 20:17 20:37 22:02 WBC RBC Hgb Hct MCV MCH MCHC RDW Coeff of Martell Plt Count Neut % (Auto) Lymph % (Auto) [place] % (Auto) Eos % (Auto) Baso % (Auto) Neut # (Auto) Lymph # (Auto) [place] # (Auto) Eos # (Auto) Baso # (Auto) Abs Immat Gran (auto) Imm/Tot Granulo (auto) D-Dimer Quant (PE/DVT) Sodium Potassium Chloride Carbon Dioxide Anion Gap BUN Creatinine Estimated Creat Clear Estimated GFR Glucose Calcium Magnesium Total Bilirubin 0.7 Direct Bilirubin 0.2 AST 44 H ALT 18 Alkaline Phosphatase 79 Troponin I 0.09 H* Total Protein 7.2 Albumin 4.2 Lipase SARS-CoV-2 (PCR) Negative SARS-CoV-2 Influenza Type A (PCR) Negative PCR FLU A Influenza Type B (PCR) Negative PCR FLU B RSV (PCR) Negative PCR RSV Lab Acknowledgement Test Added POC Troponin I 10/07/24 10/08/24 23:17 04:15 WBC 8.35 RBC 4.58 Hgb 13.4 Hct 40.7 MCV 89 MCH 29 MCHC 33 RDW Coeff of Martell 12.6 Plt Count 285 Neut % (Auto) 48.6 Lymph % (Auto) 35.1 [place] % (Auto) 9.3 Eos % (Auto) 5.7 Baso % (Auto) 1.2 Neut # (Auto) 4.05 Lymph # (Auto) 2.93 H [place] # (Auto) 0.80 Eos # (Auto) 0.48 Baso # (Auto) 0.10 Abs Immat Gran (auto) 0.01 Imm/Tot Granulo (auto) 0.1 D-Dimer Quant (PE/DVT) Sodium 137 Potassium 3.9 Chloride 103 Carbon Dioxide 29 Anion Gap 5 L BUN 15 Creatinine 0.8 Estimated Creat Clear 42.62 Estimated GFR 77 Glucose 88 Calcium 9.7 Magnesium Total Bilirubin 0.8 Direct Bilirubin AST 31 ALT 17 Alkaline Phosphatase 63 Troponin I 0.11 H* Total Protein 6.8 Albumin 4.1 Lipase 100 SARS-CoV-2 (PCR) Influenza Type A (PCR) Influenza Type B (PCR) RSV (PCR) Lab Acknowledgement Test Added POC Troponin I ECG Attestation: I personally reviewed and interpreted this ECG as follows: Prior ECG tracings: available for review Interpretation: Normal sinus rhythm. No ST segment elevation or depression. Unchanged from prior readings.
[2024-10-08 08:27] VITALS: BP 125/54; PULSE 67; RESP 16; TEMP 36.5; O2SAT 98
[2024-10-08] MEDS: SODIUM CHLORIDE 0.9 % (FLUSH) 10 ML SYRINGE 5 ML IVF (08:30)
[2024-10-08 10:25] LABS: Troponin I* 0.08 ng/mL (0.01-0.04)
--- NOTE | 2024-10-08 11:43 | PM.DS1 ---
DS: Providers Provider Date Seen: 10/08/24 Date of admission: 10/07/24 23:51 Primary care physician: Luis Greene MD Admitting Clinician: Marifer Crowe MD Attending Physician on discharge: Benjamin Gandhi MD Date of Discharge: 10/08/24 DS: Diagnosis Discharge Diagnosis (1) Chest pain: Status: Acute Problem details: - chest and epigastric, present for 10-14 days prior to admission - ddx: GERD, biliary colic, CAD - follow troponin to peak, telemetry, TTE 10/08: trop i levels steady throughout hospital stay 0.09, 0.09, 0.11, and 0.08 - Will need to schedule cardiac stress test - started empirically on PPI omeprazole - will need follow-up with PCP (2) Elevated troponin: Status: Acute Problem details: - 0.09 in ER, unchanged upon repeat, follow to peak - flat elevated troponin I suggestive of nonischemic etiology. Seemingly normal kidney function. Check TSH. (3) Lung nodules: Status: Acute Problem details: - incidentally noted on 10/07 CT, patient aware - low risk, no f/u per Society Guidelines DS: Summary Hospital Course Hospital Course: Admission history of present illness: 74 year old female who presented to the ER with epigastric pain. Symptoms noted intermittently over the past few weeks, typically noted after eating, in the evening. Has used TUMS for symptoms with relief. Has been active without incident. Over the weekend, had an episode at her son's wedding (10/03) with associated vomiting x1. Today, had two episodes of discomfort and one included bilateral arm pain, called her PCP's nursing line and was advised to come in. No history of HTN, Hyperlipidemia, or CAD. No diarrhea or constipation. ER Course and Findings: - reassuring CBC and CMP, negative triple swab - troponin 0.09m same on repeat - no acute abnormalities on EKG - D-dimer 1.61 - CT Angiogram negative for PE, scattered B nodules noted, all <6mm 10/08/2024, hospital day 2: One asymptomatic since admission to hospital. Slept well last night. Feeling well now. He denies chest heaviness, pressure, tightness, or pain. Denies dyspnea at rest, paroxysmal nocturnal dyspnea, orthopnea. Denies dyspnea with exertion. No cough. Denies heartburn, nausea, vomiting. No syncope or near-syncope. Denies orthostasis. She remained asymptomatic throughout the remainder hospital stay with activity and with eating. Electrocardiogram unchanged throughout hospital stay. Troponin I relatively flat but mildly elevated throughout hospital stay between 0.08 and 0.11, with value prior to discharge is 0.08. Status at Discharge Functional status at discharge: independent ambulation Time Spent with Patient Time attestation: Total time spent providing and/or coordinating discharge services: Time spent: Greater than 30 minutes Exam Narrative: Exam Narrative: I examine her in her hospital room. Appears comfortable no acute distress. Vision and hearing are adequate. Alert and oriented x4. Articulate and cooperative. Friendly. Cranial nerves 3-12 grossly normal. Independent in transfer, station, gait. No focal motor neurologic deficits. Lungs are clear to auscultation without wheezing, rhonchi, rales. Heart tones with regular rhythm, normal S1-S2, without murmur, gallop, rub. PMI not laterally displaced. No palpable, inducible chest pain. Abdomen with active bowel sounds, soft, nontender. No organomegaly or masses. Extremities without edema. Skin is warm, dry, intact. Const: Vital Signs, click to edit/add: Vital Signs - 24 hr 10/07/24 17:29 10/07/24 20:32 10/07/24 20:44 Temperature 96.7 F L 98.5 F Pulse Rate Pulse Rate [Left R adial] Pulse Rate [Pulse Oximeter] 72 75 62 Pulse Rate [Right Pulse Oximeter] Respiratory Rate 16 18 18 Blood Pressure [Le ft Arm] Blood Pressure [Ri ght Upper Arm] 155/84 H 179/79 H 165/81 H Pulse Oximetry 98 99 98 Oxygen Delivery De thod Room Air Room Air Room Air 10/07/24 20:55 10/07/24 21:40 10/07/24 22:00 Temperature Pulse Rate Pulse Rate [Left R adial] Pulse Rate [Pulse Oximeter] 97 66 64 Pulse Rate [Right Pulse Oximeter] Respiratory Rate 20 16 16 Blood Pressure [Le ft Arm] Blood Pressure [Ri ght Upper Arm] 147/74 H 154/73 H 137/64 Pulse Oximetry 98 97 95 Oxygen Delivery De thod Room Air Room Air Room Air 10/07/24 22:00 10/07/24 23:44 10/08/24 00:30 Temperature 98.5 F 97.6 F Pulse Rate Pulse Rate [Left R adial] Pulse Rate [Pulse Oximeter] 68 Pulse Rate [Right Pulse Oximeter] 67 Respiratory Rate 16 16 Blood Pressure [Le ft Arm] 182/82 H Blood Pressure [Ri ght Upper Arm] 135/60 Pulse Oximetry 95 95 97 Oxygen Delivery De thod Room Air Room Air 10/08/24 00:30 10/08/24 00:32 10/08/24 03:05 Temperature 97.7 F Pulse Rate 86 Pulse Rate [Left R adial] Pulse Rate [Pulse Oximeter] Pulse Rate [Right Pulse Oximeter] 66 Respiratory Rate 16 14 Blood Pressure [Le ft Arm] 125/57 L Blood Pressure [Ri ght Upper Arm] Pulse Oximetry 97 99 Oxygen Delivery De thod Room Air Room Air 10/08/24 08:27 Temperature 97.7 F Pulse Rate Pulse Rate [Left R adial] 67 Pulse Rate [Pulse Oximeter] Pulse Rate [Right Pulse Oximeter] Respiratory Rate 16 Blood Pressure [Le ft Arm] 125/54 L Blood Pressure [Ri ght Upper Arm] Pulse Oximetry 98 Oxygen Delivery De thod Room Air DS: Data Data Completed and Pending Labs on day of discharge: Labs from last 24 hours 10/08/24 10/08/24 10/08/24 09:45 08:18 04:15 WBC 8.35 RBC 4.58 Hgb 13.4 Hct 40.7 MCV 89 MCH 29 MCHC 33 RDW Coeff of Martell 12.6 Plt Count 285 Neut % (Auto) 48.6 Lymph % (Auto) 35.1 [place] % (Auto) 9.3 Eos % (Auto) 5.7 Baso % (Auto) 1.2 Neut # (Auto) 4.05 Lymph # (Auto) 2.93 H [place] # (Auto) 0.80 Eos # (Auto) 0.48 Baso # (Auto) 0.10 Abs Immat Gran (auto) 0.01 Imm/Tot Granulo (auto) 0.1 D-Dimer Quant (PE/DVT) Sodium 137 Potassium 3.9 Chloride 103 Carbon Dioxide 29 Anion Gap 5 L BUN 15 Creatinine 0.8 Estimated Creat Clear 42.62 Estimated GFR 77 Glucose 88 Calcium 9.7 Magnesium Total Bilirubin 0.8 Direct Bilirubin AST 31 ALT 17 Alkaline Phosphatase 63 Troponin I 0.08 H* 0.11 H* Total Protein 6.8 Albumin 4.1 Lipase 100 TSH 3.080 SARS-CoV-2 (PCR) Influenza Type A (PCR) Influenza Type B (PCR) RSV (PCR) Lab Acknowledgement Test Added POC Troponin I 10/07/24 10/07/24 10/07/24 23:17 22:02 20:37 WBC RBC Hgb Hct MCV MCH MCHC RDW Coeff of Martell Plt Count Neut % (Auto) Lymph % (Auto) [place] % (Auto) Eos % (Auto) Baso % (Auto) Neut # (Auto) Lymph # (Auto) [place] # (Auto) Eos # (Auto) Baso # (Auto) Abs Immat Gran (auto) Imm/Tot Granulo (auto) D-Dimer Quant (PE/DVT) Sodium Potassium Chloride Carbon Dioxide Anion Gap BUN Creatinine Estimated Creat Clear Estimated GFR Glucose Calcium Magnesium Total Bilirubin 0.7 Direct Bilirubin 0.2 AST 44 H ALT 18 Alkaline Phosphatase 79 Troponin I 0.09 H* Total Protein 7.2 Albumin 4.2 Lipase TSH SARS-CoV-2 (PCR) Negative SARS-CoV-2 Influenza Type A (PCR) Negative PCR FLU A Influenza Type B (PCR) Negative PCR FLU B RSV (PCR) Negative PCR RSV Lab Acknowledgement Test Added POC Troponin I 10/07/24 10/07/24 10/07/24 20:17 20:13 20:04 WBC 10.09 RBC 4.71 Hgb 13.7 Hct 41.9 MCV 89 MCH 29 MCHC 33 RDW Coeff of Martell 12.6 Plt Count 323 Neut % (Auto) 58.1 Lymph % (Auto) 28.8 [place] % (Auto) 7.9 Eos % (Auto) 4.2 Baso % (Auto) 0.9 Neut # (Auto) 5.86 Lymph # (Auto) 2.91 H [place] # (Auto) 0.80 Eos # (Auto) 0.42 Baso # (Auto) 0.09 Abs Immat Gran (auto) 0.01 Imm/Tot Granulo (auto) 0.1 D-Dimer Quant (PE/DVT) 1.61 H Sodium 138 Potassium 4.2 Chloride 103 Carbon Dioxide 28 Anion Gap 7 BUN 18 Creatinine 0.8 Estimated Creat Clear 42.62 Estimated GFR 77 Glucose 96 Calcium 10.4 Magnesium Cancelled 2.3 Total Bilirubin Direct Bilirubin AST ALT Alkaline Phosphatase Troponin I 0.09 H* Total Protein Albumin Lipase TSH SARS-CoV-2 (PCR) Influenza Type A (PCR) Influenza Type B (PCR) RSV (PCR) Lab Acknowledgement Test Added POC Troponin I 10/07/24 19:57 WBC RBC Hgb Hct MCV MCH MCHC RDW Coeff of Martell Plt Count Neut % (Auto) Lymph % (Auto) [place] % (Auto) Eos % (Auto) Baso % (Auto) Neut # (Auto) Lymph # (Auto) [place] # (Auto) Eos # (Auto) Baso # (Auto) Abs Immat Gran (auto) Imm/Tot Granulo (auto) D-Dimer Quant (PE/DVT) Sodium Potassium Chloride Carbon Dioxide Anion Gap BUN Creatinine Estimated Creat Clear Estimated GFR Glucose Calcium Magnesium Total Bilirubin Direct Bilirubin AST ALT Alkaline Phosphatase Troponin I Total Protein Albumin Lipase TSH SARS-CoV-2 (PCR) Influenza Type A (PCR) Influenza Type B (PCR) RSV (PCR) Lab Acknowledgement POC Troponin I 0.07 H Imaging Chest x-ray: Attestation: I have reviewed the pertinent imaging results. My impression: No acute cardiopulmonary changes Discharge Plan Discharge Disposition: Home, Self-Care Date of Admission: 10/07/24 23:51 Attending Provider on Discharge: Benjamin Gandhi Primary Care Provider: Luis Greene Condition: Stable Anticipated Discharge Date/Time: 10/08/24 16:00 Discharge Medications: New omeprazole 20 mg Capsule,Delayed Release(Dr/Ec) 40 mg PO DAILY@0700 30 Days Qty: 30 0RF aspirin [Children's Aspirin] 81 mg Tablet,Chewable 81 mg PO DAILY 30 Days Qty: 30 0RF Discharge Orders: Discharge Order (Routine); Ordered 10/08/24 Ordered By: Marifer Crowe Patient Education: Aspirin (By mouth), Omeprazole (By mouth), GERD (Gastroesophageal Reflux Disease) (DC), Esophageal Spasm (GEN) Additional Instructions: 1. Dobutamine cardiac stress ECHO test first available appointment week of 12 October 2024 2. Follow-up with Dr. Greene mid to latter part of next week, after cardiac stress test, to assess condition and possible additional assessments and interventions 4. Lifestyle modifications for gastroesophageal reflux disease 4. Consider additional diagnositc testing for gastrointestinal cause of symptoms, such as esophagogastroduodenoscopy assessment Activity Level: No Restrictions and Activity as Tolerated Discharge Diet: Heart Healthy (2 gm sodium, low fat) Follow Up Appointments: Luis Greene MD [Primary Care Provider, Family Practice] - 10/15/24 10:00 am Referral Note: [facility] for Post-Hospital follow up appointment. [facility] will reach out to you about your Dobutamine cardiac stress ECHO. Forms: [employer] Info Instructions
[2024-10-08] MEDS: ASPIRIN 81 MG TAB.CHEW PO (12:31)
== END 2024-10-08 17:15 | disposition home or self-care (01) ==
LOC: ED 23:02 → MEDSURG 23:52
PROVIDERS: Internal Medicine; Admitting Provider Family Medicine; Emergency Provider Student in an Organized Health Care Education/Training Program; PCP Family Medicine; Visit Provider Family Medicine
DX: R07.9 Chest pain, unspecified (principal); R79.89 Other specified abnormal findings of blood chemistry; R91.8 Other nonspecific abnormal finding of lung field; R10.13 Epigastric pain; K21.9 Gastro-esophageal reflux disease without esophagitis; M25.551 Pain in right hip; M54.17 Radiculopathy, lumbosacral region; M19.90 Unspecified osteoarthritis, unspecified site; M85.80 Other specified disorders of bone density and structure, unspecified site; Z90.89 Acquired absence of other organs; Z98.51 Tubal ligation status; Z98.890 Other specified postprocedural states
CPT/HCPCS: 36415; 71046; 71275; 80048; 80053; 80076; 83690; 83735; 84443; 84484; 85025; 85379; 87631; 93005; 93306; 94761; 99284; 99285; A9270; G0378; Q9967